=== PATIENT | male | born 1970 | race African-American/Black ===

== ENCOUNTER → 2017-04-17 | Outpatient (CLI) | payer OTHER ==
--- NOTE | 2017-04-18 01:25 | REP ---
Clinical: Lower back pain. Technique: AP, lateral, bilateral oblique and coned-down views of the lumbosacral spine. Findings: Frontal view suggests chronic dextroconvex scoliosis centered at approximately T12-L1. Lateral view demonstrates normal lordosis without acute fracture / compression injury or subluxation. Bilateral oblique views are normal and without spondylolysis or spondylolisthesis. Impression: Dextroconvex scoliosis. Otherwise normal, age-appropriate lumbosacral spine radiograph series. Signed by Jovanni Alanis MD 04/18/2017 01:16 A
== END ==
LOC: M RAD 09:29
PROVIDERS: ATTEND Surgery
DX: M54.5 Low back pain (principal)